=== PATIENT | female | born 1950 | race Caucasian/White ===

== ENCOUNTER 2024-05-23 07:00 | Day surgery (SDC) | payer OTHER ==
[2024-05-22 10:51] LABS: Absolute Eosinophils 0.2 K/uL (0-0.5); Absolute Lymphocytes (CBC) 1.4 K/uL (0.7-4.9); Absolute Monocytes 0.6 K/uL (0.1-1.3); Absolute Neutrophil 4.6 K/uL (1.8-8.0); Basophils % 0.7 % (0-1.3); Eosinophils % 2.6 % (0-4.4); Hematocrit 40.3 % (36.0-45.0); Hemoglobin 13.1 g/dL (12.0-15.0); Lymphocytes % 20.4 % (15.3-44.8); MCH 29.3 pg (27.0-35.0); MCHC 32.6 g/dL (32.0-36.0); MCV 89.9 fL (80-100); MPV 9.3 fL (7.6-11.3); Monocytes % 8.2 % (3.3-12.3); Neutrophils % 68.1 % (41.7-73.7); Nucleated Red Blood Cells % 0.1 % (0-0); Platelets 265 thou/uL (152-406); RBC Red Blood Cell Count 4.48 M/uL (3.86-4.86); Red Cell Distribution Width 14.4 % (12.1-15.2)
[2024-05-22 10:54] LABS: PT Prothrombin Time 11.6 SECONDS (9.4-12.5); PTT, Activated Partial Thromb 34.8 SECONDS (24.3-36.9); Protime INR 1.04
[2024-05-22 10:59] LABS: Anion Gap 8.8 mEq/L (5.0-15.0); Potassium 3.8 mEq/L (3.5-5.1)
--- NOTE | 2024-05-22 12:15 | RAD REPORT ---
EXAMINATION: ONE VIEW CHEST XR CLINICAL INDICATION: Female, 73 years old.,PRE OPERATIVE. Hypertension TECHNIQUE: Frontal chest projection is submitted. Examination is limited by patient positioning and t echnique. COMPARISON: 04/03/2019 FINDINGS: The lungs are well inflated and clear. No pneumothorax or sizable effusion. The heart is upper limit of normal in size. Mediastinal contours are unremarkable. IMPRESSION: No acute intrathoracic abnormalities.
[2024-05-23] MEDS ORDERED: NA CHLORIDE 0.9% 500 ML ONE (07:15)
[2024-05-23] MEDS ORDERED: HEPA 1000U/500MLS 2,000 UNIT/1,000 ML BAG IV ONE (07:35)
[2024-05-23] MEDS ORDERED: MIDAZOLAM HCL 2 MG/2 ML INJ ONE (07:36)
[2024-05-23] MEDS ORDERED: HEPARIN 10,000 UNIT/10 ML VIAL IV ONE (07:36)
[2024-05-23] MEDS ORDERED: LIDOCAINE 1% 20 ML MDV ONE (07:36)
[2024-05-23] MEDS ORDERED: NITROGLYCERIN/D5W 50 MG/250 ML BTL IV ONE (07:36)
[2024-05-23] MEDS ORDERED: ATROPINE SULF 1 MG/10 ML SYR IV ONE (07:36)
[2024-05-23] MEDS ORDERED: CLOPIDOGREL 75 MG TABLET ONE (07:37)
[2024-05-23] MEDS ORDERED: FENTANYL CITR 100 MCG/2 ML ONE (07:37)
[2024-05-23] MEDS ORDERED: ASPIRIN 325 MG TAB ONE (07:37)
[2024-05-23] MEDS ORDERED: TICAGRELOR 90 MG TABLET PO ONE (07:37)
[2024-05-23] MEDS ORDERED: HEPARIN 5000 UNIT/ML 1 ML VIAL ONE (07:37)
[2024-05-23 09:14] VITALS: TEMP 97.5
[2024-05-23 13:11] VITALS: BP 155/62; O2SAT 95
--- NOTE | 2024-05-23 14:51 | OP ---
Date of Procedure: 05/23/2024 Surgeon: Agustin Up Procedure Performed: Selective coronary angiogram. Indication For Procedure: Abnormal stress test. Complications: None. Estimated Blood Loss: Less than 50 cc. Access: Right radial, closed by TR band. Sedation Time: 20 minutes with 1 of Versed and 25 of fentanyl. Description Of Procedure: After risks, and benefits, and alternatives were explained to the patient, patient agreed to proceed with procedure and signed informed consent. The patient was brought back to the laborer construction or leak gang, prepped and draped in sterile fashion. Time-out was performed. Sedation was admini stered. Next, right radial access was obtained using ultrasound-guided micropuncture technique. Tig er 4.0 catheter was advanced over a J-wire to the aortic root. Selective angiogram was done using e same catheter. At the end of procedure, catheter was removed through a J-wire. Sheath was removed . TR band was applied. Hemostasis was achieved and the patient was moved back to recovery room in s table condition. Findings: 1.Left main normal. 2.LAD normal. 3.Left circ normal. 4.RCA; proximal mild luminal irregularities with mid 20% to 30% disease, then mild luminal irregular ities. Assessment And Plan: Mild mid right coronary artery disease. Plan will be to continue medical management. JHONY/TERESA Voice ID: [id number] Report ID: [id number]
== END 2024-05-23 10:50 | disposition home or self-care (01) ==
LOC: CCL 07:00
PROVIDERS: ATTEND Internal Medicine Interventional Cardiology
DX: I25.10 Atherosclerotic heart disease of native coronary artery without angina pectoris (principal); I10 Essential (primary) hypertension; E11.9 Type 2 diabetes mellitus without complications; E78.2 Mixed hyperlipidemia; E03.9 Hypothyroidism, unspecified; Z79.82 Long term (current) use of aspirin; Z79.85 Long-term (current) use of injectable non-insulin antidiabetic drugs; Z79.899 Other long term (current) drug therapy; Z88.0 Allergy status to penicillin; Z88.2 Allergy status to sulfonamides
CPT/HCPCS: 85025; 80048; 36415; 85610; 85730; 71045; 93454; 76937; C1893; Q9966; J1644; J2003; J2250; J3010; J7040; 99152; 99153; J0461